=== PATIENT | female | born 1990 | race Caucasian/White ===

== ENCOUNTER 2018-03-25 17:22 | Emergency (ER) | payer BC, OTHER ==
[~2018-03-25] VITALS: Ht 172.7 cm; Wt 79.4 kg
[~2018-03-25 17:22] MED LIST: HYDR1TAB PO
--- OUTSIDE RECORDS SUMMARY | 2018-03-25 17:27 | XMS REPORT | Continuity of Care Document ---
Author Author [facility] Organization [facility] Address Unknown Phone Unavailable Allergies Active Description Code Type Severity Reaction Onset Reported/Identified Relationship to Patient Clinical Status Yes No Known Drug Allergies [id number] Drug Allergy Unknown N/A 10/14/2011 Medications There is no data. Problems Date Dx Coded Attending Type Code Diagnosis Diagnosed By 04/01/2014 JANNIE MCDERMOTT DO Ot 722.10 04/01/2014 SHARRON WILSON JANNIE Ot 724.1 06/08/2015 SHARRON WILSON JANNIE Ot 722.10 06/08/2015 MCDERMOTT DO, JANNIE Ot 724.1 11/09/2015 SHARRON DO, JANNIE Ot 722.10 LUMBAR DISC DISPLACEMENT 11/09/2015 SHARRON DO, JANNIE Ot 724.1 PAIN IN THORACIC SPINE 05/21/2016 MCDERMOTT DO, JANNIE Ot 722.10 LUMBAR DISC DISPLACEMENT 05/21/2016 MCDERMOTT DO, JANNIE Ot 724.1 PAIN IN THORACIC SPINE 07/30/2017 MCDERMOTT DO, JANNIE Ot 722.10 LUMBAR DISC DISPLACEMENT 07/30/2017 MCDERMOTT DO, JANNIE Ot 724.1 PAIN IN THORACIC SPINE Procedures There is no data. Results There is no data. Encounters ACCT No. Visit Date/Time Discharge Status Pt. Type Provider Facility Loc./Unit Complaint [id number] 07/05/2013 11:50:00 07/05/2013 23:59:59 CLS Outpatient JANNIE MCDERMOTT DO [facility] RAD RADICULOPATHY, BACK PAIN , HERNIATED DISCS
--- NOTE | 2018-03-25 19:21 | ED GU-Female ---
General Chief Complaint: -Female Stated Complaint: CRAMPS IN ABD Nursing Triage Note: PT REPORTS CRAMPING THAT STARTED LAST FRIDAY AFTER HER AND HER HAD INTERCOURSE. PT REPORTS THAT SHE HAD HER PERIOD ON MARCH 05 AND IT WAS UNUSUALLY HEAVY. PT STATES SHE HAS AN IUD AND PCOS. DENIES PAIN BUT STATES SHE HAS DISCOMFORT AND A FEELING THAT SOMETHING ISNT RIGHT. Nursing Sepsis Screen: No Definite Risk Source: patient Exam Limitations: no limitations History of Present Illness Date Seen by Provider: Mar 25, 2018 Time Seen by Provider: 19:21 Allergies and Home Medications Allergies Coded Allergies: No Known Drug Allergies (Unverified , 10/14/11) Home Medications Hydrocodone Bit/Acetaminophen 1 Each Tablet, 1-2 EACH PO Q4HR PRN Prescribed by: MURTAZA OATES on 10/14/111940 Past Nxkeeoa-Kmzror-Epmfro Hx Patient Social History Alcohol Use: Rarely Uses Alcohol Beverage of Choice: Vodka Recreational Drug Use: Yes Drug of Choice: MARIJUANA Smoking Status: Current Everyday Smoker Recent Foreign Travel: No Contact w/Someone Who Travel: No Recent Infectious Disease Expo: No Recent Hopitalizations: No Physical Abuse: No Sexual Abuse: No Seasonal Allergies Seasonal Allergies: No Past Medical History Surgeries: No Respiratory: No Cardiac: No Neurological: No Female Reproductive Disorders: Polycystic Ovarian Dis BLOCK PAVER History: IUD Genitourinary: No Gastrointestinal: No Musculoskeletal: No Endocrine: No HEENT: No Cancer: No Psychosocial: No Integumentary: No Blood Disorders: No Physical Exam Vital Signs Vital Signs - First Documented 03/25/18 17:56 Temp 98.4 Pulse 73 Resp 12 B/P (MAP) 108/73 (85) Pulse Ox 98 Capillary Refill : Less Than 3 Seconds Height, Weight, BMI Height: 5'8.00" Weight: 175lbs. oz. 79.395763ga; BMI Method:Stated Progress/Results/Core Measures Suspected Sepsis Recent Fever Within 48 Hours: No Infection Criteria Present: None New/Unexplained Altered Menta: No Sepsis Screen: No Definite Risk SIRS Temperature:98.4 Pulse: 73 Respiratory Rate: 12 Laboratory Tests 03/25/18 19:42: White Blood Count 8.1 Blood Pressure 108 /73 Mean: 85 Laboratory Tests 03/25/18 19:42: Creatinine 0.78, Platelet Count 240, Total Bilirubin 0.3 Results/Orders Lab Results Laboratory Tests Test 03/25/18 19:19 03/25/18 19:42 Range/Units Urine Color YELLOW Urine Clarity SLIGHTLY CLOUDY Urine pH 5 5-9 Urine Specific [place] 1.025 H 1.016-1.022 Urine Protein NEGATIVE NEGATIVE Urine Glucose (UA) NEGATIVE NEGATIVE Urine Ketones 1+ H NEGATIVE Urine Nitrite NEGATIVE NEGATIVE Urine Bilirubin NEGATIVE NEGATIVE Urine Urobilinogen NORMAL NORMAL MG/DL Urine Leukocyte Esterase NEGATIVE NEGATIVE Urine RBC (Auto) 1+ H NEGATIVE Urine RBC 2-5 H /HPF Urine WBC NONE /HPF Urine Squamous Epithelial Cells 5-10 /HPF Urine Crystals NONE /LPF Urine Bacteria FEW H /HPF Urine Casts NONE /LPF Urine Mucus SMALL H /LPF Urine Culture Indicated NO White Blood Count 8.1 4.3-11.0 10^3/uL Red Blood Count 4.22 L 4.35-5.85 10^6/uL Hemoglobin 12.9 11.5-16.0 G/DL Hematocrit 39 35-52 % Mean Corpuscular Volume 92 80-99 FL Mean Corpuscular Hemoglobin 31 25-34 PG Mean Corpuscular Hemoglobin Concent 33 32-36 G/DL Red Cell Distribution Width 12.5 10.0-14.5 % Platelet Count 240 130-400 10^3/uL Mean Platelet Volume 9.5 7.4-10.4 FL Neutrophils (%) (Auto) 58 42-75 % Lymphocytes (%) (Auto) 35 12-44 % Monocytes (%) (Auto) 6 0-12 % Eosinophils (%) (Auto) 1 0-10 % Basophils (%) (Auto) 0 0-10 % Neutrophils # (Auto) 4.7 1.8-7.8 X 10^3 Lymphocytes # (Auto) 2.8 1.0-4.0 X 10^3 Monocytes # (Auto) 0.5 0.0-1.0 X 10^3 Eosinophils # (Auto) 0.1 0.0-0.3 10^3/uL Basophils # (Auto) 0.0 0.0-0.1 10^3/uL Sodium Level 139 135-145 MMOL/L Potassium Level 3.6 3.6-5.0 MMOL/L Chloride Level 104 98-107 MMOL/L Carbon Dioxide Level 26 21-32 MMOL/L Anion Gap 9 5-14 MMOL/L Blood Urea Nitrogen 11 7-18 MG/DL Creatinine 0.78 0.60-1.30 MG/DL Estimat Glomerular Filtration Rate > 60 BUN/Creatinine Ratio 14 Glucose Level 105 70-105 MG/DL Calcium Level 9.2 8.5-10.1 MG/DL Corrected Calcium 9.0 8.5-10.1 MG/DL Total Bilirubin 0.3 0.1-1.0 MG/DL Aspartate Amino Transf (AST/SGOT) 17 5-34 U/L Alanine Aminotransferase (ALT/SGPT) 21 0-55 U/L Alkaline Phosphatase 48 40-136 U/L Total Protein 6.8 6.4-8.2 GM/DL Albumin 4.2 3.2-4.5 GM/DL Serum Test, Qualitative NEGATIVE NEGATIVE My Orders Orders - HEAVEN MILLER Comprehensive Metabolic Panel (03/25/18 19:20) Ua Culture If Indicated (03/25/18 19:20) Hcg,Qualitative Serum (03/25/18 19:20) Cbc With Automated Diff (03/25/18 19:20) Pelvis (03/25/18 20:16) Vital Signs/I&O 03/25/18 17:56 Temp 98.4 Pulse 73 Resp 12 B/P (MAP) 108/73 (85) Pulse Ox 98 Capillary Refill : Less Than 3 Seconds Blood Pressure Mean: 85 Departure Impression Primary Impression: IUD (intrauterine device) in place Disposition: 01 HOME, SELF-CARE Condition: Stable/Unchanged Departure-Patient Inst. Decision time for Depature: 20:28 Referrals: JANNIE MCDERMOTT DO (PCP/Family) Primary Care Physician Patient Instructions: Intrauterine Devices (IUD) Add. Discharge Instructions: Follow-up with your wheel and caster repairer for your regular within 1 week for recheck. Call first thing tomorrow morning for an appointment time. Return back to the emergency room for any worsening symptoms or concerns as needed. All discharge instructions reviewed with patient and/or family. Voiced understanding. HEAVEN MILLER Mar 25, 2018 19:21
[2018-03-25 19:34] LABS: BILIRUBIN,URINE NEGATIVE (NEGATIVE); CLARITY,URINE SLIGHTLY CLOUDY; COLOR,URINE YELLOW; GLUCOSE, URINE (UA) NEGATIVE (NEGATIVE); KETONES,URINE 1+ (NEGATIVE); LEUKOCYTE ESTERASE ,URINE NEGATIVE (NEGATIVE); NITRITE,URINE NEGATIVE (NEGATIVE); PH,URINE 5 (5-9); PROTEIN,URINE NEGATIVE (NEGATIVE); UROBILINOGEN,URINE NORMAL (NORMAL)
[2018-03-25 19:44] LABS: BACTERIA,URINE FEW /HPF
[2018-03-25 19:48] LABS: BASOPHILS % (AUTO) 0 % (0-10); EOSINOPHILS # (AUTO) 0.1 10^3/uL (0.0-0.3); EOSINOPHILS % (AUTO) 1 % (0-10); HEMATOCRIT 39 % (35-52); HEMOGLOBIN 12.9 G/DL (11.5-16.0); LYMPHOCYTES # (AUTO) 2.8 X 10^3 (1.0-4.0); LYMPHOCYTES % (AUTO) 35 % (12-44); MEAN CORPUSCULAR HEMOGLOBIN 31 PG (25-34); MEAN CORPUSCULAR HGB CONC 33 G/DL (32-36); MEAN CORPUSCULAR VOLUME 92 FL (80-99); MEAN PLATELET VOLUME 9.5 FL (7.4-10.4); MONOCYTES # (AUTO) 0.5 X 10^3 (0.0-1.0); MONOCYTES % (AUTO) 6 % (0-12); NEUTROPHILS # (AUTO) 4.7 X 10^3 (1.8-7.8); NEUTROPHILS % (AUTO) 58 % (42-75); PLATELET COUNT 240 10^3/uL (130-400); RED BLOOD COUNT 4.22 10^6/uL (4.35-5.85); RED CELL DISTRIBUTION WIDTH 12.5 % (10.0-14.5); WHITE BLOOD COUNT 8.1 10^3/uL (4.3-11.0)
[2018-03-25 20:05] LABS: ALANINE AMINOTRANSFERASE 21 U/L (0-55); ALBUMIN 4.2 GM/DL (3.2-4.5); ALKALINE PHOSPHATASE 48 U/L (40-136); BILIRUBIN,TOTAL 0.3 MG/DL (0.1-1.0); BUN/CREATININE RATIO 14; CALCIUM 9.2 MG/DL (8.5-10.1); CARBON DIOXIDE 26 MMOL/L (21-32); CHLORIDE 104 MMOL/L (98-107); CREATININE SERUM 0.78 MG/DL (0.60-1.30); GFR ESTIMATED > 60; GLUCOSE 105 MG/DL (70-105); POTASSIUM 3.6 MMOL/L (3.6-5.0); SODIUM 139 MMOL/L (135-145); TOTAL PROTEIN 6.8 GM/DL (6.4-8.2)
--- NOTE | 2018-03-25 20:44 | Diagnostic Imaging Report ---
INDICATION: Check IUD placement COMPARISON: None available TECHNIQUE: Single radiograph of the pelvis dated 03/25/2018. FINDINGS: T-shaped radiopaque density is identified overlying the midline pelvis, felt to relate to intrauterine device. Additional metallic density seen overlying the left abdomen just to the left of the L4/L5 disc space. No acute fracture or dislocation. The sacroiliac joints are intact. IMPRESSION: T-shaped radiopaque density overlying the midline pelvis felt to relate to intrauterine device. If exact location of the intrauterine device is desired, ultrasound of the pelvis would be recommended. Metallic radiopaque density seen overlying the abdomen just to the left of midline. It is favored that this is external to the patient, possibly related to a zipper. Recommend clinical correlation. Dictated by: Dictated on workstation # [id number]
[2018-03-25 23:29] VITALS: BP 108/73
== END 2018-03-25 21:07 | disposition home or self-care (01) ==
LOC: EDUNIT# 17:22 → ER 17:24
DX: R10.9 Unspecified abdominal pain (principal); F17.200 Nicotine dependence, unspecified, uncomplicated; F12.10 Cannabis abuse, uncomplicated; Z97.5 Presence of (intrauterine) contraceptive device
CPT/HCPCS: 36415; 72170; 80053; 81000; 84703; 85025

== ENCOUNTER 2021-04-19 13:23 | Emergency (ER) | payer BC ==
[~2021-04-19] VITALS: Ht 172.7 cm; Wt 83.1 kg
[2021-04-19] MEDS ORDERED: HYDR50CA3 PO (14:18)
[2021-04-19 14:31] LABS: BILIRUBIN,URINE NEGATIVE (NEGATIVE); CLARITY,URINE CLEAR; COLOR,URINE YELLOW; GLUCOSE, URINE (UA) NEGATIVE (NEGATIVE); KETONES,URINE NEGATIVE (NEGATIVE); LEUKOCYTE ESTERASE ,URINE NEGATIVE (NEGATIVE); NITRITE,URINE NEGATIVE (NEGATIVE); PH,URINE 7.5 (5-9); PROTEIN,URINE NEGATIVE (NEGATIVE)
[2021-04-19 15:20] LABS: BACTERIA,URINE TRACE /HPF; SQUAMOUS EPITHELIAL CELL,UR RARE /HPF; WBC,URINE RARE /HPF
--- NOTE | 2021-04-19 17:28 | ED GU-Female ---
General Chief Complaint: - Reproductive Stated Complaint: URGENCY URINATION Nursing Triage Note: pt c/o persistent urge to urinate since the beginning of February. She has been seen by her AUDIT SPECIALIST et by [facility] without resolution. She has had 4-5 UAs in the past 2 months. She has been treated for UTI with macrobid et ciprofloxacin with temporary improvement. Pyridium initially improved symptoms, but does not help anymore. Source: patient Exam Limitations: no limitations History of Present Illness Date Seen by Provider: Apr 19, 2021 Time Seen by Provider: 16:49 Initial Comments Patient ER by private conveyance with her significant other chief complaint for the past 6 or 7 weeks has been having discomfort associated with urination and a feeling that she has need to micturate early on after she micturates. She st ates she is urinated 4 times since has been here in the ER. He does not feel like her bladder is emptying. She went to her dynamo tender who did a UA and found she had what looked to be a urinary tract infection put her on Macrobid and then a few weeks later she had repeat of symptoms. Her symptoms did go away on the antibiotics. She was seen again had a urinary tract infection diagnosed and given ciprofloxacin which made her feel better. She finished them over the weekend and also finished her period on Friday of this week. She went to the doctor and had a urinalysis performed on Friday which did not show a UTI. She went back yesterday to the walk-in clinic at [facility] where she receives primary care and was given a urinalysis result of positive for bilirubin, nitrites, blood. She was not put on antibiotics again. She is been using Pyridium which she says helped early on but does not help now. She is not having any fevers chills nausea vomiting diarrhea or constipation. No history of abdominal surgery. She has a copper T IUD. REAMING MACHINE OPERATOR FOR PLASTIC is Dr. Aguiar. She has not seen a urologist. Allergies and Home Medications Allergies Coded Allergies: No Known Drug Allergies (Unverified , 10/14/11) Patient Home Medication List Home Medication List Reviewed: Yes Doxycycline Hyclate (Doxycycline Hyclate) 100 Mg Tablet, 100 MG PO BID Prescribed by: ALLSION MONTILLA on 04/19/211813 Hydrocodone Bit/Acetaminophen (Vicodin 5-500 Tablet) 1 Each Tablet, 1-2 EACH PO Q4HR PRN Prescribed by: MURTAZA OATES on 10/14/111940 Hydroxyzine Pamoate (Hydroxyzine Pamoate) 50 Mg Capsule, 50 MG PO Q6H PRN for ANXIETY, (Reported) Entered as Reported by: RAMÍREZ CANSECO on 04/19/21 1418 Last Action: New Order Review of Systems Review of Systems Constitutional: No chills, No diaphoresis EENTM: No ear discharge, No ear pain Respiratory: No cough, No short of breath Cardiovascular: No edema, No palpitations Gastrointestinal: No abdominal pain, No nausea, No vomiting Genitourinary: denies discharge, denies dysuria Musculoskeletal: No back pain, No gout, No joint pain All Other Systemes Reviewed Negative Unless Noted: Yes Past Foqgbwz-Aygoum-Otmpus Hx Patient Social History Tobacco Use?: No Substance use?: No Alcohol Use?: No Immunizations Up To Date Influenza Vaccine Up-to-Date: Yes; Up-to-Date First/Initial COVID19 Vaccinat: 06/21/20 Second COVID19 Vaccination Delvis: 07/20/20 COVID19 Vaccine Box Estimator: Riffyn Seasonal Allergies Seasonal Allergies: No Past Medical History Surgeries: No Respiratory: No Cardiac: No Neurological: No Female Reproductive Disorders: Polycystic Ovarian Dis AUDIT SPECIALIST History: IUD Genitourinary: No Gastrointestinal: No Musculoskeletal: No Endocrine: No HEENT: No Cancer: No Psychosocial: No Integumentary: No Blood Disorders: No Physical Exam Vital Signs Vital Signs - First Documented 04/19/21 14:09 Temp 37.0 Pulse 95 Resp 16 B/P (MAP) 125/82 (96) Pulse Ox 97 O2 Delivery Room Air Capillary Refill : Less Than 3 Seconds Height, Weight, BMI Height: 5'8.00" Weight: 175lbs. oz. 79.912557he; 27.00 BMI Method:Stated General Appearance: WD/WN, no apparent distress HEENT: PERRL/EOMI, TMs normal, pharynx normal Neck: full range of motion, supple, normal inspection Cardiovascular: normal peripheral pulses, regular rate, rhythm Respiratory: lungs clear, normal breath sounds, no respiratory distress, no accessory muscle use Gastrointestinal: normal bowel sounds, non tender, soft Extremities: normal range of motion, non-tender, normal capillary refill Neurologic/Psychiatric: alert, normal mood/affect, oriented x 3 Skin: normal color, warm/dry Progress/Results/Core Measures Suspected Sepsis SIRS Temperature: Pulse: 95 Respiratory Rate: 16 Blood Pressure 125 /82 Mean: 96 Results/Orders Lab Results Laboratory Tests Test 04/19/21 14:25 Range/Units Urine Color YELLOW Urine Clarity CLEAR Urine pH 7.5 5-9 Urine Specific [place] 1.015 L 1.016-1.022 Urine Protein NEGATIVE NEGATIVE Urine Glucose (UA) NEGATIVE NEGATIVE Urine Ketones NEGATIVE NEGATIVE Urine Nitrite NEGATIVE NEGATIVE Urine Bilirubin NEGATIVE NEGATIVE Urine Urobilinogen 0.2 < = 1.0 MG/DL Urine Leukocyte Esterase NEGATIVE NEGATIVE Urine RBC (Auto) NEGATIVE NEGATIVE Urine RBC NONE /HPF Urine WBC RARE /HPF Urine Squamous Epithelial Cells RARE /HPF Urine Crystals NONE /LPF Urine Bacteria TRACE /HPF Urine Casts NONE /LPF Urine Mucus SMALL H /LPF Urine Culture Indicated NO Urine Test NEGATIVE NEGATIVE Vital Signs/I&O 04/19/21 14:09 Temp 37.0 Pulse 95 Resp 16 B/P (MAP) 125/82 (96) Pulse Ox 97 O2 Delivery Room Air Capillary Refill : Less Than 3 Seconds Blood Pressure Mean: 96 Progress Note #1: Time: 17:25 Progress Note Post void residual bladder scan ordered. Urinalysis unremarkable on microscopy today. Will refer to urology. Cautioned about overuse of Pyridium Progress Note #2: Time: 18:12 Progress Note Postvoid residual demonstrated 0 mL. We will provide her with a short course of doxycycline if her symptoms become intractable again and have her follow-up with urology Departure Impression Primary Impression: Urethritis Disposition: 01 HOME, SELF-CARE Condition: Stable Departure-Patient Inst. Decision time for Depature: 18:13 Referrals: [facility] Primary Care Physician JANNIE MCDERMOTT DO (PCP/Family) TRISTAN BRADLEY MD Patient Instructions: Urethritis (DC) Add. Discharge Instructions: If your symptoms come back then I suggest Tylenol 1000 mg every 8 hours. Ibuprofen 800 mg every 8 hours or naproxen 2 tablets twice a day. If this is not sufficient then I would suggest starting the doxycycline 1 capsule twice a day for a week. While you are on the antibiotics I suggest using probiotics twice a day. Call Dr. Bradley's office tomorrow and get scheduled for his next available appointment. All discharge instructions reviewed with patient and/or family. Voiced understanding. Scripts Doxycycline Hyclate (Doxycycline Hyclate) 100 Mg Tablet 100 MG PO BID for 7 Days, #14 TAB 0 Refills Prov: ALLISON MONTILLA 04/19/21 Work/School Note: Work Release Form Date Seen in the Emergency Department: Apr 19, 2021 Return to Work: Apr 20, 2021 Restrictions: No Restrictions Copy Copies To 1: TRISTAN BRADLEY MD, TITUS J Apr 19, 2021 17:28
[2021-04-19] MEDS ORDERED: DOXY100T2 PO ×2 (18:14→18:16)
[2021-04-19 18:25] VITALS: BP 126/80
[2021-04-19] MEDS ORDERED: KETOROLAC 60 MG/2 ML VIAL IM ONE (18:30)
== END 2021-04-19 18:25 | disposition home or self-care (01) ==
LOC: EDUNIT# 13:23 → ER 13:26
DX: N34.2 Other urethritis (principal); Z87.42 Personal history of other diseases of the female genital tract; Z97.5 Presence of (intrauterine) contraceptive device; Z32.02 Encounter for pregnancy test, result negative
CPT/HCPCS: 81000; 84703; 99284

== ENCOUNTER → 2021-04-26 | Outpatient (CLI) | payer BC ==
[~2021-04-26] MED LIST changes: +DOXY100T2 PO; +HYDR50CA3 PO
--- NOTE | 2021-04-26 09:49 | Diagnostic Imaging Report ---
PROCEDURE: CT abdomen and pelvis without contrast. TECHNIQUE: Multiple contiguous axial images were obtained through the abdomen and pelvis without the use of intravenous contrast. Auto Exposure Controls were utilized during the CT exam to meet ALARA standards for radiation dose reduction. INDICATION: Microhematuria and cystitis. COMPARISON: No prior studies are available for comparison. FINDINGS: The lung bases are clear of acute infiltrates. The liver and gallbladder are unremarkable. The pancreas and spleen are unremarkable. No adrenal mass is detected. No renal calculi are seen. There is no hydronephrosis. Aorta is nonaneurysmal. Small and large bowel loops are normal caliber. There is no free fluid or fluid collection. Bladder is unremarkable. Uterus contains an IUD. No inflammatory changes are seen. IMPRESSION: Unremarkable noncontrast CT of the abdomen and pelvis. No acute feature is detected. Dictated by: Dictated on workstation # [id number]
== END ==
LOC: RAD 08:45
PROVIDERS: ATTEND Urology
DX: N30.91 Cystitis, unspecified with hematuria (principal)
CPT/HCPCS: 74176

== ENCOUNTER → 2021-11-28 | Outpatient (CLI) | payer BC | END | disposition home or self-care (01) | LOC: PREOP 05:40 | PROVIDERS: ATTEND Urology | DX: Z01.818 Encounter for other preprocedural examination (principal) ==

== ENCOUNTER 2021-12-05 05:49 | Day surgery (SDC) | payer BC ==
[~2021-12-05] VITALS: Ht 172 cm; Wt 86.4 kg
[2021-12-05] VITALS (8 sets, daily range): BP systolic 91–119; BP diastolic 55–80
[~2021-12-05 05:49] MED LIST changes: +LACTATED RINGERS 1,000 ML IV PRN; +MIRA50TA PO; +MULT-974 PO; +SULF1TAB38 PO
[2021-12-05] MEDS ORDERED: LACTATED RINGERS 1,000 ML IV PRN (06:45)
[2021-12-05] MEDS ORDERED: cefTRIAXone 1 GM PRE-MIX 50 ML IV ONE (06:45)
[2021-12-05] MEDS ORDERED: ONONBOTOX 100 UNITS/NS 10 ML INJ ONE ×2 (06:45)
[2021-12-05] MEDS ORDERED: fentaNYL INJ 100 MCG/2 ML AMP ONE (07:01)
[2021-12-05] MEDS ORDERED: LIDOCAINE PF 1% 5 ML (XYLOCAINE) AMP ONE (07:01)
[2021-12-05] MEDS ORDERED: proPOfol 200 MG/20 ML (DIPRIVAN) VIAL IV ONE (07:01)
[2021-12-05] MEDS ORDERED: MIDAZOLAM 2 MG/2 ML (VERSED) VIAL ONE (07:02)
[2021-12-05] MEDS ORDERED: 0.9% SODIUM CHLORIDE PF INJ 20 ML VIAL ONE (07:07)
--- NOTE | 2021-12-05 07:16 | Progress Note-Pre Operative ---
Pre-Operative Progress Note Date of Available H&P: Dec 05, 2021 Date H&P Reviewed: Dec 05, 2021 Time H&P Reviewed: 07:15 Changes from last HP NONE Pre-Operative Diagnosis: OAB AND SEVERE URGENCY REFRACTORY TO MEDICAL TREATMENT TRISTAN BRADLEY MD Dec 05, 2021 07:16
[2021-12-05] MEDS ORDERED: ONDANSETRON 4 MG/2 ML (SDV) Z0FRAN ONE (07:47)
[2021-12-05] MEDS ORDERED: SEVOFLURANE (ULTANE) 15 ML INHAL SOLN ONE (07:48)
--- NOTE | 2021-12-05 07:56 | Progress Note-Post Operative ---
Post-Operative Progess Note Surgeon (s)/General Operator (s) Surgeon TRISTAN BRADLEY MD General Operator: NONE Pre-Operative Diagnosis OAB AND SEVERE URGENCY REFRACTORY TO MEDICAL TREATMENT Post-Operative Diagnosis SAME Procedure & Operative Findings Date of Procedure 12/05/21 Procedure Performed/Findings ENDOSCOPIC BOTOX INJECTIONS Anesthesia Type GENERAL Estimated Blood Loss Estimated blood loss (mL): NONE Specimens/Packing Specimens Removed NONE Packing: NONE TRISTAN BRADLEY MD Dec 05, 2021 07:56
--- NOTE | 2021-12-05 07:58 | Discharge Inst-Urology ---
Discharge Inst-Urology Reconcile Patient Problems Problems Reviewed?: Yes Final Diagnosis OAB AND SEVERE URGENCY REFRACTORY TO MEDICAL TREATMENT Patient Instructions/Follow Up Plan/Assessment/Instructions Please make appointment to been seen in office in 3 weeks. Showers, no baths Keep bowels soft and moving Increase oral fluids for 48 hours and then as needed. Diet and Activity as tolerated. If questions or concerns contact your physician Or seek help at emergency department. TRISTAN BRADLEY MD Dec 05, 2021 07:58
[2021-12-05] MEDS ORDERED: PHEN-640 PO (08:15)
[2021-12-05] MEDS ORDERED: HYDROmorphone 2 MG/ML VIAL (DILAUDID) IV ONE (08:15)
[2021-12-05] MEDS ORDERED: ONDANSETRON 4 MG/2 ML (SDV) Z0FRAN IVP PRN (08:15)
[2021-12-05] MEDS ORDERED: NITR-65 PO (08:15)
--- NOTE | 2021-12-05 09:06 | OPERATIVE REPORT ---
DATE OF SERVICE: 12/05/2021 PREOPERATIVE DIAGNOSIS: Overactive bladder and severe urgency, refractory to medical treatment. POSTOPERATIVE DIAGNOSIS: Overactive bladder and severe urgency, refractory to medical treatment. OPERATION PERFORMED: Endoscopic Botox injection. SURGEON: Jesús Bradley MD ANESTHESIA: General. COMPLICATIONS: None. DESCRIPTION OF PROCEDURE: Under satisfactory general anesthesia, the patient in lithotomy position, genitalia were prepped and draped in the usual sterile fashion. A 17-Slovenian cystoscope was introduced in the bladder. The bladder was half filled, injection of the Botox at 0.5 mL in 20 areas starting above and lateral to the ureteral orifices was performed. There was no bleeding. I removed the cystoscope, performed a manual Valsalva maneuver that was negative. Reinserted the scope to empty the bladder and the patient tolerated the procedure and anesthesia well and was sent to recovery room in stable condition. Instructions were given to her and preoperatively to the patient. CC: [facility] - requested, unable to deliver. Job ID: [id number] DocumentID: [id number] Dictated Date: 12/05/2021 08:00:11 Java Android Developer Date: 12/05/2021 09:05:27 Dictated By: JESÚS BRADLEY MD
--- NOTE | 2021-12-05 11:58 | Anesthesia-General Post-Op ---
General Patient Condition Mental Status/LOC: Same as Preop Cardiovascular: Satisfactory Nausea/Vomiting: Absent Respiratory: Satisfactory Pain: Controlled Complications: Absent Post Op Complications Complications None Follow Up Care/Instructions Patient Instructions None needed. Anesthesia/Patient Condition Patient Condition Patient is doing well, no complaints, stable vital signs, no apparent adverse anesthesia problems. No complications reported per nursing. [place] [facility] [place]: Yes ANA PADRON CRNA Dec 05, 2021 11:58
== END 2021-12-05 09:20 | disposition home or self-care (01) ==
LOC: SDC 05:49
PROVIDERS: ATTEND Urology
DX: N32.81 Overactive bladder (principal); R39.15 Urgency of urination; Y84.9 Medical procedure, unspecified as the cause of abnormal reaction of the patient, or of later complication, without mention of misadventure at the time of the procedure; E66.9 Obesity, unspecified; Z68.29 Body mass index [BMI] 29.0-29.9, adult
CPT/HCPCS: 84703; 87081